=== PATIENT | male | born 1950 | race Caucasian/White ===

== ENCOUNTER 2017-12-28 21:52 | Observation (INO) | payer MEDICARE, SELFPAY ==
[2017-12-28 21:53] VITALS: BP 177/76; PULSE 65; RESP 17; TEMP 35.9; O2SAT 99; BMI 45.6
--- NOTE | 2017-12-28 22:15 | EKG12_ITS ---
Test Reason : NEURO Blood Pressure : / mmHG Vent. Rate : 061 BPM Atrial Rate : 061 BPM P-R Int : 168 ms QRS Dur : 102 ms QT Int : 402 ms P-R-T Axes : 042 -26 065 degrees QTc Int : 404 ms Normal sinus rhythm Normal ECG Confirmed by ALEX BISWAS MD ([id number]), editor trade journal CARINA LINDSAY ([id number]) on 01/02/2018 3:03:47 PM Referred By: ESTHELA Confirmed By:ALEX BISWAS MD
--- NOTE | 2017-12-28 22:15 | RAD_ITS ---
STUDY: X-RAY CHEST REASON FOR EXAM: Male, 67 years old. Neck stiffness TECHNIQUE: Single AP portable view of the chest. COMPARISON: None. FINDINGS: The lungs are clear and expanded. There is no demonstrated pleural abnormality. There is mild cardiac enlargement. Normal mediastinum and alphonse. Normal visualized pulmonary arteries. Normal visualized aortic arch and descending thoracic aorta. Normal visualized thoracic spine. Normal visualized ribs, clavicles, and shoulders. There is no demonstrated abnormality of the visualized soft tissue structures of the upper abdomen. RAD/Chest 1 View IMPRESSION: No acute infiltrate. Mild cardiomegaly. Electronically Signed: Lito Devi DO at 23:36 EDT , Service support ,
--- NOTE | 2017-12-28 22:22 | NURSING ---
NO OLD EKG'S
--- NOTE | 2017-12-28 22:27 | CT_ITS ---
STUDY: CT BRAIN WITH AND WITHOUT CONTRAST REASON FOR EXAM: Male, 67 years old. Numbness and tingling in the right arm. Neck stiffness for 3 to 4 days. History of diabetes and hypertension. RADIATION DOSAGE (If Supplied By Facility): CTDIvol = ( 31.7 ) mGy, DLP = ( 1696.43 ) mGycm TECHNIQUE: Transaxial CT imaging of the brain was performed pre and post contrast administration. The examination was performed with intravenous administration of 100ML ml of Isovue 370 contrast material. Individualized dose optimization techniques were used for this CT. COMPARISON: None. FINDINGS: Normal soft tissue structures. Normal calvarium. There is focal encephalomalacia in the inferior right occipital lobe, consistent with a small old infarction. There is mild cerebral atrophy with widening of the extra-axial spaces and ventricular dilatation. There are areas of decreased attenuation within the white matter tracts of the supratentorial brain, consistent with microvascular disease changes. Normal basal ganglia and thalami. Normal brainstem. Normal cerebellum. There is mild atherosclerotic calcification of the cavernous carotid arteries. There is no intracranial hemorrhage. There are no findings of an acute ischemic infarction. Normal visualized paranasal sinuses. CT/CTA Head W/WO Contrast IMPRESSION: Chronic involutional changes of the brain. 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 No demonstrated acute intracranial process. Electronically Signed: Damian Doshi MD at 0:16 EDT , Service support ,
--- NOTE | 2017-12-28 22:27 | CT_ITS ---
CTA of the neck. CLINICAL HISTORY: Right arm and neck stiffness PROCEDURE: 100 mL is of Isovue-370 were used for the examination. FINDINGS: Normal takeoffs of the left subclavian, the left common carotid artery and the brachiocephalic artery. The entire left carotid system is normal with no focal aneurysms and no demonstration of any hemodynamically significant stenosis. A small calcific density is seen in the left carotid bulb. The entire right carotid system is normal with no focal aneurysms and no demonstration of a hemodynamically significant stenosis. The entire vertebrobasilar circulation is normal with no focal aneurysms and no demonstration of a hemodynamically significant stenosis. IMPRESSION: The study is within normal limits except for a small calcific atherosclerotic plaque in the left carotid bulb Electronically Signed: Hugo Orozco, at 0:20 EDT Tel , Service support , CT/CTA Neck W/WO Contrast
--- OUTSIDE RECORDS SUMMARY | 2017-12-28 22:34 | XMS RPT_ITS ---
:1950 Author Organization [facility] Care Team Providers Name Role Phone DOCTOR, OUT OF TOWN Primary Care Unavailable Ungur, Remus Attending Unavailable PROBLEMS PROBLEMS No Problem Records FoundPROCEDURES PROCEDURES No Procedure Records FoundRESULTS RESULTS No Result Records FoundALLERGIES ALLERGIES DATE TYPE / CODE NAME / CODE REACTION SEVERITY SOURCE 12/28/2017 Drug No Known Unknown [facility] Allergy/4160 Allergies/F00 Hospital 36689(SNOMED [id number](RXNOR Repository CT) M) ENCOUNTERS ENCOUNTERS ADMIT/DISCHARGE ACCOUNT ADMITTING ENCOUNTER LOCATION SOURCE NUMBER CLASS 12/28/2017 [id number] Ambulatory Jessica Jessica [address] [place] [address] ing:ED Repository PAYERS PAYERS ENCOUNTER GUARANTOR PAYER SUBSCRIBER SOURCE 12/28/2017 Luisa Primary Luisa [id number] Insurance:MEDICARE [place] [place] [id number] Number: Repository [id number]: [phone] [id number] [phone] (HP) Date:2017-12-28 12/28/2017 Secondary Luisa Lopez [facility] [facility] Number: [id number] [id number] Repository Date:[id number] SERVICE [id number] [place], [place] [address]VR: [phone] 12/28/2017 Tertiary NOT GIVENUNK Jessica Insurance:SELF PAY [facility] Number: Effective Repository Date:2017-12-28
[2017-12-28 22:40] LABS: Bedside Glucose 342 mg/dL (70-110)
[2017-12-28 22:49] VITALS: O2SAT 96
[2017-12-28 22:53] VITALS: BP 188/69; PULSE 58; RESP 16; O2SAT 98
[2017-12-28 23:05] LABS: Absolute Lymphocyte Count 2.14 X10^3/ul (0.83-4.51); Absolute Neutrophil Count 3.6 X10^3/uL (2.0-7.7); Basophil# 0.02 X10^3/uL; Basophil% 0.3 % (0-1); Eosinophil# 0.09 X10^3/uL; Eosinophils% 1.4 % (0-5); Hematocrit 31.8 % (40-54); Hemoglobin 11.6 g/dl (13.0-16.5); Lymphocyte # 2.14 X10^3/ul (4.0); Lymphocyte % 33.4 % (19-41); Mean Corp Hgb Conc 36.5 g/gl (32-36); Mean Corpuscular Hgb 33.3 pg (27.0-32.0); Mean Corpuscular Volume 91.4 fL (80-94); Mean Platelet Vol. 9.9 fl (6.2-12.0); Monocyte# 0.58 X10^3/uL; Monocyte% 9.1 % (0-10); Neutrophil # 3.56 X10^3/uL (2.7-7.7); Neutrophil % 55.6 % (47-70); Platelet Count 232 K/mm3 (150-450); RBC Distribution Width CV 12.4 % (11.6-14.6); RBC Distribution Width SD 39.6 fl (35.1-43.9); Red Blood Count 3.48 M/mm3 (4.6-6.2); White Blood Count 6.4 K/mm3 (4.4-11.0)
[2017-12-28 23:07] LABS: POSITIVE COUNT NO; POSITIVE DIFFERENTIAL NO; POSITIVE MORPHOLOGY NO
[2017-12-28 23:08] LABS: Partial Thromboplast Time 25.7 Seconds (24.1-36.2)
[2017-12-28 23:16] VITALS: BP 172/95; PULSE 59; RESP 16; O2SAT 98
[2017-12-28 23:17] LABS: Anion Gap 8 (5-15); BUN 17 mg/dL (7-18); BUN/Creat Ratio 9.9 RATIO (10-20); Calcium,Total 9.3 mg/dL (8.5-10.1); Chloride 101 mmol/L (98-107); Creatinine, Serum 1.72 mg/dL (0.70-1.30); EST Glomerular Filtration Rate 42 mL/min (>60); Est Glom Filt Rate - Afr Amer 51 mL/min (>60); Estimated Creatinine Clearance 40.32 ml/min; Glucose 348 mg/dL (74-106); Potassium 3.9 mmol/L (3.5-5.1); Sodium Level 135 mmol/L (136-145)
--- NOTE | 2017-12-28 23:50 | ED.VISSUMM ---
- ER Visit Summary Date of Service: 12/28/17 Chief Complaint: [Numbness right arm] History of Present Illness: The patient is a 67 M presents the emergency department with complaint of numbness in his right arm ?4 days. Patient states he has pins and needle sensation in his fingertips but the entire right arm is numb. He denies any weakness in the arm. He denies any pain in the arm. Patient denies any neck pain or injury although he states tonight he started developing some mild soreness in the right side of his neck. Patient denies any chest pain or abdominal pain. He denies recent illness. Patient denies any falls or head injuries.] Physical Examination: [HEENT-PERRLA, EOMI. Cranial nerves II through XII grossly intact. TMs clear. Mucous membranes moist. No adenopathy. Cardiovascular-regular rate and rhythm without murmur or ectopy Lungs-clear to auscultation, chest wall stable without crepitus or subcu emphysema Abdomen-normoactive bowel sounds, soft, nontender, no rebound or rigidity, no peritoneal signs. Neuro jybo-rwlpfa-dzgl and heel fitzgerald testing within normal limits, negative Romberg, negative pronator drift, fundi benign. NIH stroke scale is a 1 due to paresthesias and decreased sensation of the right arm. Extremities-intact ?4, normal range of motion, normal pulses, atraumatic] Test Results: [EKG obtained arrival shows sinus rhythm with a ventricular rate of 61 bpm. CBC with differential was normal. Chemistries unremarkable. Troponin is less than 0.015. CT scan of the brain and CTA is ordered and pending.] Emergency Department Course and Treatment: [Case was discussed with Dr. Esequiel Bear who is on-call for neurology who recommended further stroke workup if imaging unremarkable.] Treatment Plan: [Admit for further workup and evaluation of stroke symptoms] Disposition: [Admit] Impression: [Paresthesias right arm rule out CVA] This note was generated with [email or web address] software. It may contain incorrect words, spelling, and punctuation that were not noted in review of the chart prior to signing ED Disposition - Plan for ED Patient: Chief Complaint: Numb/Ting [facility]errals: [facility] [Primary Care Provider] -
[2017-12-29] VITALS (16 sets, daily range): BP systolic 153–198; BP diastolic 59–85; PULSE 39–62; RESP 16–22; TEMP 36.4–36.8; O2SAT 96–100; BMI 44.0
--- NOTE | 2017-12-29 00:07 | HP.PCM_ITS ---
Problem List (1) Hypertension Status: Chronic (2) Hyperlipidemia Status: Chronic (3) Diabetes Status: Chronic (4) Stroke-like symptoms Status: Acute (5) Blister Status: Acute (6) Kidney injury Status: Acute History of Present Illness Date of Admission: 12/29/17 Chief Complaint: Strokelike symptoms ?4 days. The patient is a 67 year old M with a significant history of diabetes, hypertension, and hyperlipidemia who presents with a 4 day history of numbness to his right arm. Associated with his symptoms is tingling in the fingers of his right hand. Also he reports a sore shoulder. Further, he has a blister to his posterior shoulder that he and his family recently found. Past Medical History Past Medical History (Chronic Problems): Chronic Problems Hypertension (Chronic) Hyperlipidemia (Chronic) Diabetes (Chronic) Allergies No Known Allergies Allergy (Verified 12/28/17 21:56) Home Medications: Ambulatory Orders Medication Instructions Recorded Metformin HCl 1,000 mg PO BID 12/28/17 glipiZIDE [Glucotrol] 10 mg PO DAILY@0730 12/28/17 Surgical History: no surgical history Psychiatric History: No pertinent psych hx Smoking Status: Never smoker Tobacco Use: Non-smoker Alcohol: Rare Drugs: None - *Family History Paternal History Items: Heart Disease Maternal History Items: Heart Disease Review of Systems Constitutional: Denies: Chills, Fever, Weight Change Eyes: Denies: Blurred vision, Pain HEENT: Denies: Difficulty Hearing Cardiovascular: Denies: Chest Pain, Orthopnea Respiratory: Denies: Cough, Shortness of breath upon exertion Gastrointestinal: Denies: Abdominal Pain, Nausea, Vomiting Genitourinary: Denies: Dysuria Musculoskeletal: Denies: Joint Pain, Joint Tenderness Skin: Denies: Rash, Wounds Neurological: Reports: Numbness, Tingling. Denies: Balance problems, Blurred vision, Double vision, Change in Speech, Slurred speech, Difficulty swallowing, Focal weakness, Headaches, Incoordination, Tremor, Seizures Psychiatric: Denies: Anxiety, Depression, Homicidal Ideations, Suicidal Ideations Endocrine: Denies: Change in Body Habitus, Polyuria Hematologic/ Lymphatic: Denies: Easy Bruising, Easy Bleeding VTE Information - Inpt Only VTE Present on Admission: No VTE Mechan Device Prophylaxis: None VTE Pharm Prophylaxis ordered?: Yes Patient Problems: Active and Suspected Problems Stroke-like symptoms (Acute) Blister (Acute) Kidney injury (Acute) - Physical Exam General: Alert, Oriented x3, Cooperative HEENT: Atraumatic, PERRLA, EOMI, Normocephalic Neck: Supple, No JVD, Negative Carotid Bruits Lungs: Clear to auscultation Cardiovascular: Bradycardic - Mild Abdomen: Bowel Sounds Present, Soft, Non Tender, - - Deformity in umbilicus consistent with umbilical hernia. Extremities: No clubbing, - - R posterior shoulder with blister surrounded on an erythematous base Skin: - - Posterior right shoulder with 1 cm blister surrounded by an erythematous base. Musculoskeletal: No Tenderness to Palpation of Joints or Extremities, - Lymphatic: No Cervical, Supraclavicular, or Inguinal Adenopathy Neurological: Cranial nerves II-XII grossly intact - Right upper extremity feel numb. All other extremities with normal sensation., Deep Tendon Reflexes 2+/4 and Symmetrical, Motor Exam 5/5 strength throughout, Muscle tone normal, Coordination normal, - - Numbed sensation at right forearm. Normal sensation to left forearm and all other extremities. Psych/Mental Status: Normal Affect Vital Signs Temp Pulse Resp BP Pulse Ox 96.6 F L 59 L 16 172/95 H 98 12/28/17 21:53 12/28/17 23:16 12/28/17 23:16 12/28/17 23:16 12/28/17 23:16 Oxygen Delivery Method Room Air Weight: 136.078 kg Body Mass Index (BMI) 45.6 Finger Stick Blood Glucose 342 Laboratory Tests Past 24 Hrs 12/28/17 12/28/17 12/28/17 22:54 22:54 22:54 WBC 6.4 RBC 3.48 L Hgb 11.6 L Hct 31.8 L MCV 91.4 MCH 33.3 H MCHC 36.5 H RDW 12.4 RDW Differential 39.6 Plt Count 232 MPV 9.9 Immature Gran % (Auto) 0.200 Neut % (Auto) 55.6 Lymph % (Auto) 33.4 [place] % (Auto) 9.1 Eos % (Auto) 1.4 Baso % (Auto) 0.3 Absolute Neuts (auto) 3.6 Absolute Lymphs (auto) 2.14 Total Counted Not Reportable PT 13.0 INR 1.0 APTT 25.7 Sodium 135 L Potassium 3.9 Chloride 101 Carbon Dioxide 26.0 Anion Gap 8 BUN 17 Creatinine 1.72 H Estim Creat Clear Calc 40.32 Est GFR (MDRD) Af Amer 51 L Est GFR (MDRD) Non-Af 42 L BUN/Creatinine Ratio 9.9 L Glucose 348 H Calcium 9.3 Troponin I < 0.015 POC Glucose 12/28/17 22:36 POC Glucose 342 H Assessment/Plan All Active Problems Stroke-like symptoms (Acute) Blister (Acute) Kidney injury (Acute) The patient is a 67 year old M with a significant history of diabetes, hypertension, and hyperlipidemia with numbness and tingling of right upper extremity; soreness to shoulder, blister on right posterior shoulder and found to have elevated creatinine and elevated blood glucose. Strokelike symptoms Aspirin and high intensity statin started PT/OT/ST therapy. Patient passed dysphagia screen. Cardiac diet; caloric restriction with no concentrated sweets. CT neck with and without contrast showed atherosclerotic plaque in the left carotid bulb. Head CT Head W/WO contrast showed old right occipital lobe infarction; and chronic involutional changes of the brain. There was no acute intracranial process. MRI brain ordered. Echocardiogram ordered. Labetalol as needed for systolic blood pressure more than 220 or diastolic blood pressure more than 120. We will rule out nerve impingement with MRI of cervical spine. Neurology consult. Kidney injury Creatinine on admission was 1.7. Is unclear whether patient is having acute kidney injury on his chronic kidney injury. Previous records are not available at this time. Will do gentle fluid hydration for now. Avoid nephrotoxic's. Diabetes mellitus with hyperglycemia. At the time of admission blood glucose was 342-348 Metformin on hold especially as patient received IV contrast for imaging Insulin lispro 8 units subcutaneous ?1 We will start patient on a basal insulin and scheduled correction scale insulin. Hold home glipizide Blister on right posterior shoulder Is unclear why patient has blister at same side that he has stroke like symptoms. Blister does not look like a herpetic lesion Clinical monitoring DVT prophylaxis Subcutaneous heparin. Code Visit Inpatient E&M: 02350 Init Hosp L3
--- NOTE | 2017-12-29 02:08 | NURSING ---
Called ED jig boring machine set up operator, Liz at this time to confirm Pt okay to come to PCU.
--- NOTE | 2017-12-29 02:22 | MRI_ITS ---
STUDY: MRI BRAIN WITHOUT CONTRAST REASON FOR EXAM: Male, 67 years old. N/T RUE X 4 DAYS TECHNIQUE: Standardized multiplanar fat and water weighted pulse sequences were obtained. COMPARISON: CT December 28, 2017 FINDINGS: There is a stable old small right occipital lobe infarct with associated gliosis. There are a limited number of small white matter hyperintensities, distributed throughout the deep white matter tracts of the cerebral hemispheres, consistent with stable mild chronic white matter ischemic changes. Normal bilateral basal ganglia. Normal thalami. There is no extra-axial fluid accumulation. Normal flow voids within the major intracranial circulation suggesting patency by spin echo criteria. Normal sella turcica, pituitary gland, infundibular stalk, optic chiasm and hypothalamus. Normal tectal plate and pineal gland. Normal midbrain, anthony and medulla. Normal cerebellum. Normal basal cisterns. Normal bilateral temporal bones. Normal bilateral internal auditory canals. No demonstrated orbital abnormality, within the constraints of a routine brain study. Normal visualized paranasal sinuses. Normal calvarium and skull base. Normal visualized soft tissue structures. Normal visualized upper cervical spine. MRI/Brain without Contrast IMPRESSION: No acute abnormality is demonstrated. Electronically Signed: Agatha Rea MD at 13:45 EDT , Service support ,
--- NOTE | 2017-12-29 02:22 | ECHOCS_ITS ---
Reason For Study: TIA/CVA Procedure This was a 2D Doppler, Color Flow transthoracic echocardiogram. The study was technically difficult. Contrast injection was performed. Exam performed portable in patient room. Left Ventricle Normal LV size. Left ventricular systolic function is normal. The estimated ejection fraction is 65 %. Diastolic function: considered indeterminate,. No regional wall motion abnormalities noted. Right Ventricle Borderline enlarged right ventricle. Normal systolic function. Atria The left atrium is mildly enlarged. The right atrium is moderately enlarged. No doppler evidence for ASD. Bubble contrast study negative for right to left interatrial shunt. Mitral Valve There is no mitral annular calcification. Normal mitral valve. Trivial mitral valve insufficiency. Tricuspid Valve Normal tricuspid valve. Trivial tricuspid valve insufficiency. Unable to estimate RV systolic pressure/pulmonary artery pressure due to technically difficult study. Aortic Valve Trisinus/trileaflet aortic valve. Normal aortic valve. Trivial eccentric aortic valve insufficiency. Pulmonic Valve The pulmonic valve is not well visualized. Trivial pulmonic valve insufficiency. Great Vessels Mildly dilated aortic root. Pericardium/Pleural No pericardial effusion. Medication Performed a rapid injection of agitated mix of 9 cc saline and 1cc air to assess for atrial septal defect X 2. Diluted definity 3.0ml given slow IV push to enhance endocardial definition. MMode/2D Measurements & Calculations LVIDd: 5.6 cm IVSd: 1.3 cm Ao root diam: 4.0 cm LVIDs: 4.0 cm LVPWd: 1.2 cm LA dimension: 4.4 cm RVDd: 4.3 cm FS: 28.1 % LAV(MOD-bp): 80.9 ml LA A4 area: 23.7 cm2 RA A4 area: 27.0 cm2 LAV(MOD-bp) Indexed: 33.9 ml/m2 LAV(MOD-sp2): 81.5 ml LAV(MOD-sp4): 75.9 ml Doppler Measurements & Calculations MV E max joaquin: 89.7 cm/sec Lat Peak E' Joaquin: 7.2 cm/sec Med Peak E' Joaquin: 6.9 cm/sec MV A max joaquin: 96.4 cm/sec E/E' lat: 12.5 E/E' med: 13.0 MV E/A: 0.93 Ao V2 max: 121.6 cm/sec AI max joaquin: 279.5 cm/sec LV V1 max: 90.8 cm/sec Ao max P.9 mmHg AI max P.3 mmHg LV V1 max P.3 mmHg AI dec slope: 68.9 cm/sec2 AI P1/2t: 1189 msec PA V2 max: 101.7 cm/sec Interpretation Summary The study was technically difficult. Contrast injection was performed. Left ventricular systolic function is normal. The estimated ejection fraction is 65 %. Borderline enlarged right ventricle. The left atrium is mildly enlarged. The right atrium is moderately enlarged. Trivial mitral valve insufficiency. Trivial tricuspid valve insufficiency. Trivial eccentric aortic valve insufficiency. Trivial pulmonic valve insufficiency. Mildly dilated aortic root. Unable to estimate RV systolic pressure/pulmonary artery pressure due to technically difficult study. Diastolic function: considered indeterminate, Bubble contrast study negative for right to left interatrial shunt. Ordering Physician: Tomasz Timmons Referring Physician: [facility] Performed By: Sofía Carrion RDCS, RVT
[2017-12-29] MEDS: 0.9% Normal Saline 1,000 ML 100 ML IV (03:21)
[2017-12-29 03:31] LABS: Bedside Glucose 297 mg/dL (70-110)
[2017-12-29] MEDS: Atorvastatin Calcium 80 MG Tablet PO (03:55)
[2017-12-29] MEDS: oxyCODONE 5 MG Tablet PO (03:56)
[2017-12-29] MEDS: Insulin Lispro 100 UNIT/ML INSULN.PEN 8 UNIT SC (03:57)
[2017-12-29] MEDS: Heparin Injection (Vial) 5,000 UNIT/ML VIAL 5000 UNIT SC ×2 (06:28→13:24)
[2017-12-29 06:51] LABS: Bedside Glucose 257 mg/dL (70-110)
[2017-12-29 07:01] LABS: Anion Gap 14 (5-15); BUN 17 mg/dL (7-18); BUN/Creat Ratio 10.2 RATIO (10-20); Calcium,Total 8.8 mg/dL (8.5-10.1); Chloride 103 mmol/L (98-107); Cholesterol 104 mg/dL (200); Creatinine, Serum 1.67 mg/dL (0.70-1.30); EST Glomerular Filtration Rate 44 mL/min (>60); Est Glom Filt Rate - Afr Amer 53 mL/min (>60); Estimated Creatinine Clearance 41.53 ml/min; Glucose 285 mg/dL (74-106); High Density Lipoprotein 40 mg/dL; Potassium 3.8 mmol/L (3.5-5.1); Sodium Level 139 mmol/L (136-145); Triglycerides 225 mg/dL; Very Low Density Lipoprotein 45 mg/dL (5-40)
--- NOTE | 2017-12-29 08:01 | MRI_ITS ---
STUDY: MRI CERVICAL SPINE WITHOUT CONTRAST REASON FOR EXAM: Male, 67 years old. Impingement Right upper extremity numbness tingling TECHNIQUE: Standardized fat and water weighted pulse sequences were obtained in the sagittal and axial planes. COMPARISON: None FINDINGS: Normal foramen magnum and brainstem-cervical cord junction. Normal craniovertebral junction. Normal anterior atlantoaxial articulation. Normal odontoid process. Normal cervical lordosis. There is no spondylolisthesis. There is mild loss of disc height at C6-7. Vertebral body heights are maintained. Bone marrow signal is normal. There is multilevel facet arthropathy. C2/3: No disc bulge or herniation or central canal or neuroforaminal stenosis. C3/4: There is left uncovertebral hyperostosis. There is a diffuse bulge larger on the left. There is mild central canal stenosis and moderate left without right neuroforaminal stenosis. C4/5: There is a diffuse bulge larger on the left and a small central protrusion. There is mild central canal stenosis and mild left without right neuroforaminal stenosis. C5/6: There is a diffuse bulge larger on the left. There is mild central canal stenosis and moderate left and mild right neuroforaminal stenosis. C6/7: There is left uncovertebral hyperostosis and a mild diffuse bulge slightly larger on the left. There is borderline mild central canal stenosis and [id number] bilateral neuroforaminal stenosis. C7/T1: No disc bulge or herniation or central canal or neuroforaminal stenosis. Normal cervical cord. Normal visualized soft tissue structures. MRI/Spine Cervical (Routine) IMPRESSION: Multilevel degenerative changes, as described above. C3/4: There is left uncovertebral hyperostosis. There is a diffuse bulge larger on the left. There is mild central canal stenosis and moderate left neuroforaminal stenosis. C4/5: There is a diffuse bulge larger on the left and a small central protrusion. There is mild central canal stenosis and mild left neuroforaminal stenosis. C5/6: There is a diffuse bulge larger on the left. There is mild central canal stenosis and moderate left and mild right neuroforaminal stenosis. C6/7: There is left uncovertebral hyperostosis and a mild diffuse bulge slightly larger on the left. There is borderline mild central canal stenosis and [id number] bilateral neuroforaminal stenosis. Electronically Signed: Agatha Rea MD at 13:57 EDT , Service support ,
[2017-12-29] MEDS: Insulin Lispro 100 UNIT/ML INSULN.PEN SQ ×2 (09:32→13:23)
[2017-12-29] MEDS: Aspirin 81 MG TAB.CHEW PO (09:32)
--- NOTE | 2017-12-29 10:30 | CON.PCM_ITS ---
Reason for Consult Date of Consultation: 12/29/17 Reason for Consultation: right arm numbness History of Present Illness: The patient is a 67 yo male who noted numbness and pins and needles in his right upper extremity while driving for days ago, also has neck discomfort. reports better if holds right hand up. reports all finger affected. doesnt follow bp at home however reports its ok at md office. doesnt follow sugars at home. per admit h&p:The patient is a 67 year old M with a significant history of diabetes, hypertension, and hyperlipidemia who presents with a 4 day history of numbness to his right arm. Associated with his symptoms is tingling in the fingers of his right hand. Also he reports a sore shoulder. Further, he has a blister to his posterior shoulder that he and his family recently found. Past Medical History Past Medical History (Chronic Problems): Chronic Problems Hypertension (Chronic) Hyperlipidemia (Chronic) Diabetes (Chronic) Allergies No Known Allergies Allergy (Verified 12/28/17 21:56) Home Medications: Ambulatory Orders Medication Instructions Recorded Metformin HCl 1,000 mg PO BID 12/28/17 glipiZIDE [Glucotrol] 10 mg PO DAILY@0730 12/28/17 Surgical History: no surgical history Psychiatric History: No pertinent psych hx Smoking Status: Never smoker Tobacco Use: Non-smoker Alcohol: Rare Drugs: None - *Family History Paternal History Items: Heart Disease Maternal History Items: Heart Disease Review of Systems Constitutional: Denies: Chills, Fever, Weight Change HEENT: Denies: Head Aches, Sinus Congestion, Sinus Drainage Cardiovascular: Denies: Chest Pain, Palpitations Respiratory: Denies: Cough, Shortness of breath at rest, Sputum production Gastrointestinal: Denies: Abdominal Pain, Nausea, Vomiting Genitourinary: Denies: Dysuria Musculoskeletal: Denies: Joint Pain, Joint Tenderness Skin: Denies: Rash, Wounds Neurological: Denies: Numbness, Tingling, Focal weakness Psychiatric: Denies: Anxiety, Depression, Homicidal Ideations, Suicidal Ideations Hematologic/ Lymphatic: Denies: Easy Bruising, Easy Bleeding Patient Problems: Active and Suspected Problems Stroke-like symptoms (Acute) Blister (Acute) Kidney injury (Acute) Objective: exam nonfocal no weakness circumferential paresthesias right hand, and entire arm - Physical Exam General: Alert, Oriented x3, Cooperative, No apparent distress Vital Signs Temp Pulse Resp BP Pulse Ox 36.6 C 55 L 16 165/62 H 100 12/29/17 09:30 12/29/17 09:30 12/29/17 09:30 12/29/17 09:30 12/29/17 09:30 Oxygen Delivery Method Room Air Weight: 131.4 kg Body Mass Index (BMI) 44.0 Intake and Output for Last 24 Hours 12/27/17 12/28/17 12/29/17 23:59 23:59 23:59 Intake Total 537 / 537 Balance 537 / 537 Laboratory Tests Past 24 Hrs 12/29/17 12/29/17 03:52 03:52 Sodium 139 Potassium 3.8 Chloride 103 Carbon Dioxide 22.0 Anion Gap 14 BUN 17 Creatinine 1.67 H Estim Creat Clear Calc 41.53 Est GFR (MDRD) Af Amer 53 L Est GFR (MDRD) Non-Af 44 L BUN/Creatinine Ratio 10.2 Glucose 285 H Calcium 8.8 Troponin I < 0.015 Triglycerides 225 H Cholesterol 104 LDL Cholesterol 19 VLDL Cholesterol 45 H HDL Cholesterol 40 POC Glucose 12/29/17 12/29/17 06:35 03:19 POC Glucose 257 H 297 H Current Home Med List vitamin c vitamin d metformin potassium glipizide etodolac lasix flomax norvasc buspar crestor flexeril topamax loperamide Current Medications Generic Name Dose Route Start Last Admin Trade Name Freq PRN Reason Stop Dose Admin Aspirin 81 mg 12/29/17 08:00 12/29/17 09:32 Aspirin, Baby PO 81 mg DAILY@0800 KIM Administration Atorvastatin Calcium 80 mg 12/29/17 03:00 12/29/17 03:55 Lipitor PO 80 mg QHS KIM Administration Dextrose 0 gm 12/29/17 02:22 D50w Syringe IV X1 PRN Hypoglycemia Protocol Glucagon 1 mg 12/29/17 02:22 IM .X1 PRN Hypoglycemia Heparin Sodium (Porcine) 5,000 unit 12/29/17 06:00 12/29/17 06:28 Heparin Na SC 5,000 unit Q8 KIM Administration Sodium Chloride 1,000 mls @ 100 mls/hr 12/29/17 02:22 12/29/17 03:21 IV 12/29/17 12:21 100 mls/hr .Q10H KIM Administration Insulin Glargine 20 units 12/29/17 02:30 12/29/17 03:57 Lantus ([facility]) SC 20 units QHS KIM Administration Insulin Human Lispro 0 unit 12/29/17 07:00 12/29/17 09:32 Humalog Kwikpen ([facility]) SQ 4 u ACHS KIM Administration Protocol Labetalol HCl 10 mg 12/29/17 02:22 Trandate IV Q4H PRN PRN sbp>220 or DBP >120 Magnesium Hydroxide 30 ml 12/29/17 02:22 Milk Of Magnesia PO DAILY PRN Constipation Oxycodone HCl 5 mg 12/29/17 03:35 12/29/17 03:56 Oxyir PO 5 mg Q6H PRN PRN Administration SEVERE PAIN (6-10/10) Sodium Chloride 5 - 30 ml 12/29/17 04:09 IV UD PRN SALINE FLUSH Assessment/Plan All Active Problems Stroke-like symptoms (Acute) Blister (Acute) Kidney injury (Acute) right upper ext paresthesias suspect cervical radic await mri b and c-spine
[2017-12-29 13:41] LABS: Bedside Glucose 323 mg/dL (70-110)
--- NOTE | 2017-12-29 15:04 | CASEMGMT ---
ISAI CROWLEY NOTE: Faxed clinical information, which included: demographic sheet, H/P, medication list, and labs to [facility] @ [phone]. Baylee BEYN ISAI CM
--- NOTE | 2017-12-29 15:56 | PCM.DC ---
- Discharge Diagnoses Current Active Problems: Current Active and Chronic Problems Hypertension (Chronic) Hyperlipidemia (Chronic) Diabetes (Chronic) Stroke-like symptoms (Acute) Blister (Acute) Kidney injury (Acute) You will use the following diet at home:: Calorie/Carbohydrate Controlled (specify 1200, 1400, etc) - 1800 ilan Your food should be the consistency of: Regular Your liquids should be the consistency of: Regular/Thin Discharge Activity: Return to Normal Activity Allergies/Adverse Reactions: Allergies No Known Allergies Allergy (Verified 12/28/17 21:56) Medications to take at Discharge Metformin HCl 1,000 mg PO BID 12/28/17 glipiZIDE [Glucotrol] 10 mg PO BID 12/28/17 Amlodipine Besylate [Norvasc] 10 mg PO 12/29/17 Ascorbic Acid [Vitamin C with Sara Hips] 1,000 mg PO DAILY 12/29/17 Aspirin [Aspirin, Baby] 81 mg PO DAILY@0800 tab.chew 12/29/17 Buspirone HCl 10 mg PO BID 12/29/17 Cholecalciferol (Vitamin D3) [Vitamin D3] 5,000 unit PO 12/29/17 Cyclobenzaprine HCl 10 mg PO QHS 12/29/17 Etodolac 300 mg PO BID 12/29/17 Furosemide [Lasix] 80 mg PO DAILY 12/29/17 Ketorolac Tromethamine [Acular] 1 drop LEFT EYE 4X/DAY 12/29/17 Loperamide HCl [Anti-Diarrheal] 2 mg PO TID PRN 12/29/17 Moxifloxacin HCl [Vigamox] 3 ml LEFT EYE 4X/DAY 12/29/17 Potassium Chloride [Klor-Con M20] 20 meq PO DAILY 12/29/17 Prednisolone Acetate 5 ml LEFT EYE 4X/DAY 12/29/17 Rosuvastatin Calcium 40 mg PO QHS 12/29/17 Tamsulosin HCl [Flomax] 0.4 mg PO QHS 12/29/17 Topiramate [Topamax] 100 mg PO BID 12/29/17 Primary Care Physician: [facility] [Primary Care Provider] - Please follow up with your Primary Care Physician in: as soon as possible concernibg your blood sugars and neck problem Test Results: Test results from this visit will be discussed in further detail at your follow-up appointment, if applicable.
--- NOTE | 2017-12-30 09:09 | PCM.DC.SUM ---
Discharge Date and Diagnosis Date of Admission: 12/29/17 Date of Discharge: 12/29/17 - Primary Discharge Diagnosis #1 paresthesias of the right hand secondary to degenerative disc disease of the cervical spine #2 uncontrolled type 2 diabetes #3 diabetic neuropathy of the feet #4 small blistered skin area on right posterior shoulder-etiology unclear #5 stage III chronic kidney disease secondary to type 2 diabetes - Secondary Discharge Diagnosis Chronic Problems Hypertension (Chronic) Hyperlipidemia (Chronic) Diabetes (Chronic) Hospital Course and Treatment Operations: None Procedures: 2-D Echocardiogram Summary of Care Provided: The patient is a 67 year old M was seen in the emergency room at [facility] with complaint of numbness in his right arm and hand ?4 days. Patient denied any actual weakness in the arm, patient denied any pain in the arm, patient denied any chest pain. Workup was done in the emergency room including an EKG which shows sinus rhythm without ischemic changes, CBC was normal, chemistry profile showed an elevated blood sugar of 348 and an elevated creatinine of 1.7. Patient was placed in observation status on PCU, he was seen in consultation by neurology who felt the patient's problem was related to cervical disc disease. Patient underwent an MRI of the brain which showed no evidence of stroke, he also underwent an echocardiogram which showed preserved ejection fraction and no evidence of thrombus. Patient had a MRI of the cervical spine which showed degenerative disc disease at multiple levels in the cervical spine. It was felt that the patient's right arm numbness/paresthesias was caused by cervical disc disease. I spent some time talking with the patient about his uncontrolled diabetes, he was not aware of what an A1c was, he is also not aware that high blood pressures called hypertension. Patient gets his medical care at the [facility], [facility] and be more insistent that his blood sugar be controlled. Patient is on oral medications only, I have thought about placing the patient on Januvia in addition to his other oral hypoglycemic agents but the [facility] not [facility] and I felt it would be better if the patient went [facility] and had his medications adjusted. On 12/29/17, patient was seen and examined and felt to be in stable condition for discharge home Discharge Activity: Return to Normal Activity Home Medications: Medications to take at Discharge Metformin HCl 1,000 mg PO BID 12/28/17 glipiZIDE [Glucotrol] 10 mg PO BID 12/28/17 Amlodipine Besylate [Norvasc] 10 mg PO 12/29/17 Ascorbic Acid [Vitamin C with Sara Hips] 1,000 mg PO DAILY 12/29/17 Aspirin [Aspirin, Baby] 81 mg PO DAILY@0800 tab.chew 12/29/17 Buspirone HCl 10 mg PO BID 12/29/17 Cholecalciferol (Vitamin D3) [Vitamin D3] 5,000 unit PO 12/29/17 Cyclobenzaprine HCl 10 mg PO QHS 12/29/17 Etodolac 300 mg PO BID 12/29/17 Furosemide [Lasix] 80 mg PO DAILY 12/29/17 Ketorolac Tromethamine [Acular] 1 drop LEFT EYE 4X/DAY 12/29/17 Loperamide HCl [Anti-Diarrheal] 2 mg PO TID PRN 12/29/17 Moxifloxacin HCl [Vigamox] 3 ml LEFT EYE 4X/DAY 12/29/17 Potassium Chloride [Klor-Con M20] 20 meq PO DAILY 12/29/17 Prednisolone Acetate 5 ml LEFT EYE 4X/DAY 12/29/17 Rosuvastatin Calcium 40 mg PO QHS 12/29/17 Tamsulosin HCl [Flomax] 0.4 mg PO QHS 12/29/17 Topiramate [Topamax] 100 mg PO BID 12/29/17 [facility] [[facility]] - Please follow up with your Primary Care Physician in: as soon as possible concernibg your blood sugars and neck problem Disposition: Home Minutes spent on discharge:: 27 Patient Condition:: Stable Medical Necessity - Tobacco Use Smoking Status: Never smoker Tobacco Use: Non-smoker Meaningful Use Info Meaningful Use Diagnoses (Choose all that apply): None applicable Code Visit OBSV E&M: 47166 Observation care discharge
--- NOTE | 2017-12-30 09:14 | DS.PCM_ITS ---
Discharge Date and Diagnosis Date of Admission: 12/29/17 Date of Discharge: 12/29/17 - Primary Discharge Diagnosis #1 paresthesias of the right hand secondary to degenerative disc disease of the cervical spine #2 uncontrolled type 2 diabetes #3 diabetic neuropathy of the feet #4 small blistered skin area on right posterior shoulder-etiology unclear #5 stage III chronic kidney disease secondary to type 2 diabetes - Secondary Discharge Diagnosis Chronic Problems Hypertension (Chronic) Hyperlipidemia (Chronic) Diabetes (Chronic) Hospital Course and Treatment Operations: None Procedures: 2-D Echocardiogram Summary of Care Provided: The patient is a 67 year old M was seen in the emergency room at [facility] with complaint of numbness in his right arm and hand ?4 days. Patient denied any actual weakness in the arm, patient denied any pain in the arm, patient denied any chest pain. Workup was done in the emergency room including an EKG which shows sinus rhythm without ischemic changes, CBC was normal, chemistry profile showed an elevated blood sugar of 348 and an elevated creatinine of 1.7. Patient was placed in observation status on PCU, he was seen in consultation by neurology who felt the patient's problem was related to cervical disc disease. Patient underwent an MRI of the brain which showed no evidence of stroke, he also underwent an echocardiogram which showed preserved ejection fraction and no evidence of thrombus. Patient had a MRI of the cervical spine which showed degenerative disc disease at multiple levels in the cervical spine. It was felt that the patient's right arm numbness/ paresthesias was caused by cervical disc disease. I spent some time talking with the patient about his uncontrolled diabetes, he was not aware of what an A1c was, he is also not aware that high blood pressures called hypertension. [facility], [facility] and be more insistent that his blood sugar be controlled. Patient is on oral medications only, I have thought about placing the patient on Januvia in addition to his other oral hypoglycemic agents but the [facility] will not [facility] for Januvia and I felt it would be better if the patient went [facility] and had his medications adjusted. On 12/29/17, patient was seen and examined and felt to be in stable condition for discharge home Discharge Activity: Return to Normal Activity Home Medications: Medications to take at Discharge Metformin HCl 1,000 mg PO BID 12/28/17 glipiZIDE [Glucotrol] 10 mg PO BID 12/28/17 Amlodipine Besylate [Norvasc] 10 mg PO 12/29/17 Ascorbic Acid [Vitamin C with Sara Hips] 1,000 mg PO DAILY 12/29/17 Aspirin [Aspirin, Baby] 81 mg PO DAILY@0800 tab.chew 12/29/17 Buspirone HCl 10 mg PO BID 12/29/17 Cholecalciferol (Vitamin D3) [Vitamin D3] 5,000 unit PO 12/29/17 Cyclobenzaprine HCl 10 mg PO QHS 12/29/17 Etodolac 300 mg PO BID 12/29/17 Furosemide [Lasix] 80 mg PO DAILY 12/29/17 Ketorolac Tromethamine [Acular] 1 drop LEFT EYE 4X/DAY 12/29/17 Loperamide HCl [Anti-Diarrheal] 2 mg PO TID PRN 12/29/17 Moxifloxacin HCl [Vigamox] 3 ml LEFT EYE 4X/DAY 12/29/17 Potassium Chloride [Klor-Con M20] 20 meq PO DAILY 12/29/17 Prednisolone Acetate 5 ml LEFT EYE 4X/DAY 12/29/17 Rosuvastatin Calcium 40 mg PO QHS 12/29/17 Tamsulosin HCl [Flomax] 0.4 mg PO QHS 12/29/17 Topiramate [Topamax] 100 mg PO BID 12/29/17 [facility] [[facility]] - Please follow up with your Primary Care Physician in: as soon as possible concernibg your blood sugars and neck problem Disposition: Home Minutes spent on discharge:: 27 Patient Condition:: Stable Medical Necessity - Tobacco Use Smoking Status: Never smoker Tobacco Use: Non-smoker Meaningful Use Info Meaningful Use Diagnoses (Choose all that apply): None applicable Code Visit OBSV E&M: 10583 Observation care discharge
== END 2017-12-29 17:13 | disposition home or self-care (01) ==
LOC: ED 12-29 01:13 → PCU 12-29 01:57
PROVIDERS: Admitting Provider Hospitalist; Emergency Provider Emergency Medicine; Visit Provider Internal Medicine
DX: R42 Dizziness and giddiness (principal); E78.5 Hyperlipidemia, unspecified; R20.0 Anesthesia of skin; N17.9 Acute kidney failure, unspecified; Z79.899 Other long term (current) drug therapy; Z79.84 Long term (current) use of oral hypoglycemic drugs; E11.65 Type 2 diabetes mellitus with hyperglycemia; E11.40 Type 2 diabetes mellitus with diabetic neuropathy, unspecified; E11.22 Type 2 diabetes mellitus with diabetic chronic kidney disease; I12.9 Hypertensive chronic kidney disease with stage 1 through stage 4 chronic kidney disease, or unspecified chronic kidney disease; N18.3 Chronic kidney disease, stage 3 (moderate)
CPT/HCPCS: 36415; 70496; 70498; 70551; 71045; 72141; 80048; 80061; 82962; 84484; 85025; 85610; 85730; 92523; 93005; 93306; 96360; 96361; 96372; 97162; 97166; 97802; 99218; 99285; J7030; Q9957; Q9967; A4216; C8929; G0378; G8978; G8979; G8980; G8987; G8988; G8996; G8997; G8998; G9162; G9163; G9164

== ENCOUNTER 2019-08-29 11:01 | Emergency (ER) | payer MEDICARE, OTHER, SELFPAY ==
[2018-10-23 09:18] VITALS: BMI 42.7
[2019-08-29] VITALS (7 sets, daily range): BP systolic 154–181; BP diastolic 82–104; PULSE 84–111; RESP 12–20; TEMP 36.3–36.7; O2SAT 96–98; BMI 37.5
--- NOTE | 2019-08-29 11:13 | CT_ITS ---
STUDY: CT ABDOMEN AND PELVIS WITH CONTRAST REASON FOR EXAM: Male, 69 years old. VOMITING X1 WEEK,COUGH RADIATION DOSAGE (If Supplied By Facility): CTDIvol = ( 26.83 ) mGy, DLP = ( 2346.59 ) mGycm TECHNIQUE: Transaxial images were obtained from the dome of the diaphragm to the symphysis pubis without oral contrast. IV 100mL Isovue-300 was administered. Sagittal and coronal images were reconstructed. Individualized dose optimization techniques were used for this CT. COMPARISON: None. FINDINGS: The visualized lung bases are unremarkable. The visualized portions of the heart are within normal limits. Multiple lesions of decreased attenuation with peripheral enhancement worrisome for metastatic disease. The largest measures 6 cm in diameter in the anterior segment the right lobe of the liver. Normal gallbladder and extrahepatic biliary system. Normal spleen. Normal pancreas. Normal bilateral adrenal glands. Normal right kidney. Small left renal cysts. 4 cm round necrotic mass at the gastroesophageal junction worrisome for esophageal carcinoma. There are associated lymph nodes within the posterior mediastinum and gastrohepatic ligament worrisome for metastatic lymphadenopathy. The largest lymph node is a gastrohepatic ligament lymph node which measures 2.2 x 3.0 cm. Normal visualized stomach. Normal small intestine. Normal colon. There are surgical clips in the region of the appendix consistent with a prior appendectomy. Normal abdominal aorta. Normal inferior vena cava. Normal retroperitoneum. Normal urinary bladder. There is enlargement of the prostate gland. There is a small umbilical hernia containing fat. Normal osseous structures. 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 Correlation with endoscopy is recommended. Electronically Signed: Horacio Salcedo MD at 12:54 EDT Tel , Service support ,
--- NOTE | 2019-08-29 11:13 | RAD_ITS ---
STUDY: X-RAY CHEST REASON FOR EXAM: Male, 69 years old. PT C/O COUGH AND VOMITING FOR THE PAST WEEK., HTN, HX COLON CA TECHNIQUE: Single AP portable view of the chest. COMPARISON: None. FINDINGS: The lungs are clear and expanded. There is no demonstrated pleural abnormality. Normal size heart. Normal mediastinum and alphonse. Normal visualized pulmonary arteries. Normal visualized aortic arch and descending thoracic aorta. Normal visualized thoracic spine. Normal visualized ribs, clavicles, and shoulders. There is no demonstrated abnormality of the visualized soft tissue structures of the upper abdomen. RAD/Chest 1 View (Portable) IMPRESSION: Normal x-ray examination of the chest. Electronically Signed: Horacio Salcedo MD at 12:33 EDT Tel , Service support ,
[2019-08-29 11:41] LABS: Absolute Neutrophil Count 10.1 X10^3/uL (2.0-7.7); Basophil# 0.01 X10^3/uL; Basophil% 0.1 % (0-1); Eosinophil# 0.01 X10^3/uL; Eosinophils% 0.1 % (0-5); Hematocrit 31.3 % (40-54); Hemoglobin 10.7 g/dL (13.0-16.5); Lymphocyte % 10.3 % (19-41); Mean Corp Hgb Conc 34.2 g/dL (32-36); Mean Corpuscular Hgb 29.2 pg (27.0-32.0); Mean Corpuscular Volume 85.3 fL (80-94); Mean Platelet Vol. 9.5 fl (6.2-12.0); Monocyte% 9.5 % (0-10); NRBC Flagged by Analyzer 0 % (0-5); Neutrophil # 10.07 X10^3/uL (2.7-7.7); Neutrophil % 79.4 % (47-70); POSITIVE MORPHOLOGY YES; Platelet Count 432 K/mm3 (150-450); RBC Distribution Width CV 12.8 % (11.6-14.6); RBC Distribution Width SD 39.7 fl (35.1-43.9); Red Blood Count 3.67 M/mm3 (4.6-6.2); White Blood Count 12.7 K/mm3 (4.4-11.0)
[2019-08-29] MEDS: 0.9% Normal Saline 1,000 ML 1000 ML IV (11:42)
[2019-08-29] MEDS: Morphine 4 MG/ML Syringe IV (11:43)
[2019-08-29] MEDS: Ondansetron 4 MG/2 ML Vial IV (11:43)
[2019-08-29 11:52] LABS: Differential Indicated SCAN CRITERIA MET
[2019-08-29 12:00] LABS: ALB/GLOB Ratio 0.6 RATIO (0.9-2.4); AST(SGOT) 12 U/L (15-37); Alanine Aminotransfer ALT/SGPT 29 U/L (16-61); Albumin, Serum 2.7 g/dL (3.2-5.0); Alkaline Phosphatase 130 U/L (45-117); Anion Gap 10 (5-15); BUN 27 mg/dL (7-18); BUN/Creat Ratio 15.1 RATIO (10-20); Calcium,Total 10.9 mg/dL (8.5-10.1); Chloride 92 mmol/L (98-107); Creatinine, Serum 1.79 mg/dL (0.70-1.30); EST Glomerular Filtration Rate 40 mL/min (>60); Est Glom Filt Rate - Afr Amer 49 mL/min (>60); Estimated Creatinine Clearance 37.68 ml/min; Globulin 4.9 g/dL (2.2-4.2); Glucose 426 mg/dL (74-106); Lipase 1631 U/L (73-393); Potassium 3.7 mmol/L (3.5-5.1); Protein, Total 7.6 g/dL (6.4-8.2); Sodium Level 127 mmol/L (136-145)
[2019-08-29 12:19] LABS: Differential Comment SCANNED
--- NOTE | 2019-08-29 13:11 | NURSING ---
CALLED [facility], TALKED TO JORGE. SHE CALLED ABOUT PATIENT AT 1035. STARTED TO TALK TRANSFER. HE HAS TRAVEL WANTS CHART FAXED TO [phone]
--- NOTE | 2019-08-29 13:35 | NURSING ---
FAXED CHART TO [phone] FAXED CHART TO [phone]
--- NOTE | 2019-08-29 13:43 | NURSING ---
CALLED [facility], TALKED TO LAWRENCE. SHE GOT FAX AND WAS GIVING IT TO HEATHER [place] [id number]
--- NOTE | 2019-08-29 13:49 | ED.DCSUM_ITS ---
- ER Visit Summary Date of Service: 08/29/19 Chief Complaint: Abdominal pain History of Present Illness: The patient is a 69 M with diffuse abdominal pain for weeks. Worse with eating. He has severe nausea and vomiting. He has a cough occasionally, and seems to cough up food. No sputum or shortness of b reath. No chest pain. No fevers. No travel or exposure to coronavirus. Physical Examination: Afebrile and vital signs unremarkable except for heart rate of 111. Alert and oriented. Heart tachycardic but regular. Lungs clear. Abdomen soft. Skin appears normal. Test Results: White count 12.7 and hemoglobin 10.7. Sodium 127, chloride 92, glucose 426, BUN 27, creatinine 1.79, alkaline phosphatase 130, AST 12, lipase 1631. Chest x-ray was unremarkable. CT abdomen pelvis shows a 4 cm esophageal mass at the GE junction or distal esophagus with some necrosis, concerning for esophageal cancer. He also has corresponding lymphadenopathy and possible hepatic mets. Emergency Department Course and Treatment: Patient was treated with fluids, morphine, Zofran while awaiting results. Initially he had coronavirus precautions. Work-up, as above. He appears to have a new esophageal cancer with metastatic spread. He also has an elevated lipase, 1631. He was much more comfortable on reevaluation. We contacted the [place] for transfer and are awaiting their recommendations. Treatment Plan: As above Disposition: Transfer Impression: Esophageal cancer Pancreatitis This note was generated with [employer] dictation software. It may contain incorrect words, spelling, and punctuation that were not noted in review of the chart prior to signing ED Disposition - Plan for ED Patient: [facility] [[facility] -
--- NOTE | 2019-08-29 14:10 | NURSING ---
CALLED [facility], TALKED TO NILAM IN TRANSFER CENTER. SHE WILL TALK TO HER DOCTOR AND CALL US BACK.
--- NOTE | 2019-08-29 14:46 | NURSING ---
Addendum entered by Ofe Harkins 08/29/19 14:47: [facility] IS ARRANGING TRANSPORT Original Note: [facility], CALLED. PATIENT ACCEPTED BY DR NILAM DURAN. ROOM 4a REPORT NUMBER [phone] EXT [id number]
--- NOTE | 2019-08-29 18:38 | ED.RN ---
REPORT GIVEN TO [facility], BELONGINGS SENT WITH PATIENT, PATIENT STATUS UNCHANGED AT THIS TIME.
== END 2019-08-29 18:30 ==
LOC: ED 11:43
PROVIDERS: Emergency Provider Emergency Medicine
DX: K85.90 Acute pancreatitis without necrosis or infection, unspecified (principal); C15.9 Malignant neoplasm of esophagus, unspecified; I10 Essential (primary) hypertension; E11.9 Type 2 diabetes mellitus without complications; E78.00 Pure hypercholesterolemia, unspecified; Z79.84 Long term (current) use of oral hypoglycemic drugs; Z79.899 Other long term (current) drug therapy
CPT/HCPCS: 71045; 74177; 80053; 83690; 85025; 96361; 96374; 96375; 99284; J7030; Q9967; J2405